=== PATIENT | female | born 1935 | race Caucasian/White ===

== ENCOUNTER 2017-03-15 03:55 | Emergency (ER) | payer MEDICARE ==
[2017-03-15] MEDS ORDERED: DIPH,PERTUS(ACELL)TETVAC-LF 0.5 ML VIAL IM ONE (04:19)
[2017-03-15] MEDS ORDERED: TOPICAL SKIN ADHESIVE 1 EACH AMP TOPICAL ONE (04:20)
--- NOTE | 2017-03-15 04:55 | ED ---
Fall HPI - General Chief Complaint: Fall Stated Complaint: FALL,head lac Time Seen by Provider: 03/15/17 04:14 Source: patient Mode of arrival: wheelchair - History of Present Illness Initial Comments: This patient is an 81-year-old woman who presents with complaint that she had a fall at home. The patient states that she did not see her dog lying on the floor in the dark and she tripped over the dog. She fell forward striking her forehead. She did not have loss consciousness. She is complaining of some mild headache and also some mild pain in the base of her neck. She also is having some left rib pain. She denies other injuries. She has been able to walk following the fall. MD Complaint: fall Onset/Timin -: hour(s) Fall From: standing When Fall Occurred: [address] Fall Occurred: home Loss of Consciousness: none Prolonged Down Time?: no Symptoms Prior to Fall: none Location: head Severity: mild Context: tripped/slipped Associated Symptoms: headache - Related Data Home Medications Medication Instructions Recorded Confirmed Aspirin 81 mg PO DAILY 02/10/15 06/06/16 Atenolol [Tenormin] 25 mg PO DAILY 02/10/15 06/06/16 Lisinopril-Hctz 20-25 mg 1 each PO DAILY 02/10/15 06/06/16 [Zestoretic 20-25] Loratadine [Claritin] 10 mg PO DAILY PRN 02/10/15 06/06/16 Omeprazole [PriLOSEC] 20 mg PO AC-BRKFST 02/10/15 06/06/16 Simvastatin [Zocor] 20 mg PO HS 02/10/15 06/06/16 Calcium Carbonate [Calcium] 1,200 mg PO DAILY 06/06/16 06/06/16 Allergies Allergy/AdvReac Type Severity Reaction Status Date / Time elastic Allergy Unknown Uncoded 03/15/17 04:07 Review of Systems ROS Statement: Those systems with pertinent positive or pertinent negative responses have been documented in the HPI. ROS Other: All systems not noted in ROS Statement are negative. Constitutional: Denies: weakness Eyes: Denies: eye pain, vision change ENT: Denies: ear pain, hearing loss, epistaxis Respiratory: Denies: cough, dyspnea Cardiovascular: Denies: chest pain Gastrointestinal: Denies: abdominal pain Musculoskeletal: Denies: back pain Neurological: Reports: as per HPI, headache. Denies: weakness, numbness, paresthesias, confusion Hematological/Lymphatic: Denies: easy bleeding Past Medical History Past Medical History: CVA/TIA, GERD/Reflux, Hyperlipidemia, Hypertension Additional Past Medical History / Comment(s): diverticulitis, colitis History of Any Multi-Drug Resistant Organisms: None Reported Past Surgical History: Appendectomy, Cholecystectomy, Tonsillectomy, Tubal Ligation Additional Past Surgical History / Comment(s): lipoma removed from back, bilateral shoulder Past Psychological History: No Psychological Hx Reported Smoking Status: Never smoker Past Alcohol Use History: Rare Past Drug Use History: None Reported General Exam Limitations: no limitations General appearance: alert, in no apparent distress Head exam: Present: normocephalic Eye exam: Present: normal appearance, PERRL, EOMI. Absent: scleral icterus, conjunctival injection ENT exam: Present: normal oropharynx Neck exam: Present: normal inspection, tenderness, other (Cervical collar) Respiratory exam: Present: normal lung sounds bilaterally, chest wall tenderness (Left ribs along the costal margin.). Absent: respiratory distress, wheezes, rales, rhonchi, stridor Cardiovascular Exam: Present: regular rate, normal rhythm, normal heart sounds. Absent: systolic murmur, diastolic murmur, rubs, gallop GI/Abdominal exam: Present: soft. Absent: distended, tenderness, guarding, rebound, mass Extremities exam: Present: normal inspection, normal capillary refill. Absent: pedal edema, calf tenderness Back exam: Present: normal inspection. Absent: CVA tenderness (R), CVA tenderness (L), vertebral tenderness Neurological exam: Present: alert, oriented X3, CN II-XII intact. Absent: motor sensory deficit Skin exam: Present: warm, dry, normal color, other (There is an approximately 3- 1/2 cm laceration, curvilinear, to the forehead.) Course Vital Signs 03/15/17 04:01 Temperature 97.6 F Pulse Rate 62 Respiratory 20 Rate Blood Pressure 191/81 O2 Sat by Pulse 98 Oximetry Procedures - Laceration Laceration #1 Consent Obtained: verbal consent Indication: laceration Site: face Description: linear, clean Patient Tolerated Procedure: well, no complications Additional Comments: Laceration closed with skin adhesive without complication. Disposition Clinical Impression: Fall, Head injury Disposition: HOME SELF-CARE Condition: Good Instructions: Fall Prevention for Older Adults (ED), Head Injury (ED), Skin Adhesive Care (ED), Laceration (ED) Referrals: Juan Dumas MD [Primary Care Provider] - 1-2 days
--- NOTE | 2017-03-15 05:16 | CT ---
EXAM: CT Head Without Intravenous Contrast CLINICAL HISTORY: Reason: trauma TECHNIQUE: Axial computed tomography images of the head/brain without intravenous contrast. CTDI is 57.40 mGy and DLP is 1064.30 mGy-cm. This CT exam was performed using one or more of the following dose reduction techniques: automated exposure control, adjustment of the mA and/or kV according to patient size, and/or use of iterative reconstruction technique. COMPARISON: No relevant prior studies available. FINDINGS: Brain: Foci of fat deposits are seen along the falx. No hemorrhage. Mild microangiopathy is suggested. No edema. Ventricles: Unremarkable. No ventriculomegaly. Bones/joints: Right frontal scalp hematoma with no underlying fracture. Soft tissues: See above. Sinuses: Unremarkable as visualized. No acute sinusitis. Mastoid air cells: Unremarkable as visualized. No mastoid effusion. IMPRESSION: Right frontal scalp hematoma with no underlying fracture. No acute intracranial findings. EXAM: CT Cervical Spine Without Intravenous Contrast CLINICAL HISTORY: Reason: trauma TECHNIQUE: Axial computed tomography images of the cervical spine without intravenous contrast. CTDI is 16.60 mGy and DLP is 435.70 mGy-cm. This CT exam was performed using one or more of the following dose reduction techniques: automated exposure control, adjustment of the mA and/or kV according to patient size, and/or use of iterative reconstruction technique. COMPARISON: No relevant prior studies available. FINDINGS: Vertebrae: No acute fracture or subluxation. Grade 1 anterolisthesis of C2 on C3. No bony spinal canal stenosis. Straightening of the normal cervical lordosis is seen, which may represent muscle spasm. Discs/spinal canal/neural foramina: Multilevel degenerative disc disease most severe at C3-4 and C4-C5. Multilevel spinal canal and neuroforaminal narrowing most severe at the right C3-4 level secondary to uncovertebral hypertrophy and facet osteoarthrosis. Soft tissues: No evidence of prevertebral soft tissue swelling. Lung apices: Unremarkable as visualized. IMPRESSION: Straightening of the normal cervical lordosis, which may represent muscle spasm. Otherwise, no acute findings. Other findings, as above.
--- NOTE | 2017-03-15 05:25 | XR ---
EXAM: XR Chest, 2 Views CLINICAL HISTORY: Reason: trauma TECHNIQUE: Frontal and lateral views of the chest. COMPARISON: No relevant prior studies available. FINDINGS: Lungs: Unremarkable. No consolidation. Pleural space: Unremarkable. No pneumothorax. Heart: Unremarkable. No cardiomegaly. Mediastinum: Unremarkable. Bones/joints: Mild degenerative changes are seen. IMPRESSION: No evidence of acute cardiopulmonary disease.
[2017-03-15 06:09] VITALS: BP 180/76; PULSE 81; RESP 16; TEMP 97
== END 2017-03-15 06:08 | disposition home or self-care (01) ==
LOC: EC 03:55
DX: S01.81XA Laceration without foreign body of other part of head, initial encounter (principal); E78.5 Hyperlipidemia, unspecified; I10 Essential (primary) hypertension; K21.9 Gastro-esophageal reflux disease without esophagitis; Z98.890 Other specified postprocedural states; Z86.73 Personal history of transient ischemic attack (TIA), and cerebral infarction without residual deficits; Z79.82 Long term (current) use of aspirin; Z91.048 Other nonmedicinal substance allergy status; Z23 Encounter for immunization; W01.198A Fall on same level from slipping, tripping and stumbling with subsequent striking against other object, initial encounter; Y92.009 Unspecified place in unspecified non-institutional (private) residence as the place of occurrence of the external cause
CPT/HCPCS: 12013; 70450; 71020; 72125; 90471; 90715; 99283